=== PATIENT | female | born 1950 | race African-American/Black ===

== ENCOUNTER 2018-05-18 15:42 | Emergency (ER) | payer MEDICARE, OTHER ==
[~2018-05-18] VITALS: Ht 157.5 cm; Wt 75.0 kg
[~2018-05-18 15:42] MED LIST: ADVAIR INHALER; LISI40TA4 PO; METO-396 PO; ONDA4TAB51 PO; PANT40TA4 PO; SIMV20TA6 PO
[2018-05-18 16:05] VITALS: BP 154/82
== END 2018-05-18 18:53 | disposition left against medical advice (07) ==
LOC: ER 15:42
DX: R06.02 Shortness of breath (principal); R05 Cough; Z53.21 Procedure and treatment not carried out due to patient leaving prior to being seen by health care provider